=== PATIENT | female | born 2005 | race Caucasian/White ===

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

== ENCOUNTER 2023-01-06 18:19 | Emergency (ER) | payer OTHER, SELFPAY ==
[2023-01-06 18:20] VITALS: BP 121/81; PULSE 92; RESP 18; TEMP 36.6; O2SAT 96; BMI 33.9
--- NOTE | 2023-01-06 18:25 | EXP.UTC ---
Discharge Plan Disposition Patient Disposition: Home, Self-Care Condition: Good Prescriptions Prescriptions: New xbwudxsqpyhsgya-vjkgovyvz-YN [Bromfed DM] 2-30-10 mg/5 mL Syrup 5 ml PO Q6H PRN (Reason: Cough) Qty: 240 0RF ondansetron 4 mg Tablet,Disintegrating 4 mg PO Q8H PRN (Reason: Nausea) Qty: 12 0RF No Action Nexplanon 68 mg implant 68 mg SUBDERMAL DAILY nitrofurantoin macrocrystal 100 mg capsule 100 mg PO BID Qty: 14 0RF Rx Instructions: must administer with a meal/food fluconazole 150 mg tablet 150 mg PO Q3D Qty: 2 0RF Rx Instructions: Take one tab followed by a second 3 days later Referrals Follow up/Referrals: Provider,Referral, MD [Primary Care Provider] - See instructions Activity Restrictions/Add. Instructions Additional Instructions/Restrictions: Drink plenty of fluids. Take tylenol or ibuprofen for pain or fever. Take the medications as directed. Follow up with your regular doctor. GO TO THE ER FOR ANY WORSENING SYMPTOMS Clinical Impressions Clinical Impression: COVID-19, Acute viral syndrome Instructions Patient Instructions: Coronavirus Disease 2019, Preventing the Spread of Coronavirus Discharge Instructions Discharge ED Provider: Leo Charles [facility] [place] HPI General Stated complaint: home test covid +, rosanna, mouth pain Time Seen by Provider: 01/06/23 18:25 History of Present Illness Provider Complaint: She is here to have a pcr covid-19 test. She has felt bad for the past 3 days. She has had multiple + covid test at home. She denies any shortness of breath or congestion. Related Data Home Medications Medication Instructions Recorded Confirmed etonogestrel 68 mg subdermal 68 mg subdermal DAILY control 11/25/20 10/23/22 implant (Nexplanon) Previous Rx's Medication Instructions Recorded fluconazole 150 mg tablet 150 mg PO Q3D 2 doses #2 tabs 10/25/22 nitrofurantoin macrocrystal 100 mg 100 mg PO BID #14 caps 10/25/22 capsule cnksevlmlcyyqmf-edwtjnsakaulhcc-GS 5 ml PO Q6H PRN Cough #240 mL 01/06/23 2 mg-30 mg-10 mg/5 mL oral syrup (Bromfed DM) ondansetron 4 mg disintegrating 4 mg PO Q8H PRN Nausea #12 tabs 01/06/23 tablet Allergies Allergy/AdvReac Type Severity Reaction Status Date / Time No Known Allergies Allergy Verified 10/23/22 13:07 [facility] Disclaimer: The information contained in this section may have been updated after the patient was seen, as this information can be updated by other users. Medical History (Updated 01/06/23 @ 18:54 by Leo Charles APRN) No significant past medical history Surgical History (Updated 10/23/22 @ 13:07 by RON Cage) History of tonsillectomy and adenoidectomy Family History (Updated 10/23/22 @ 13:07 by RON Cage) Other No significant family history Social History Smoking Status: Never smoker alcohol intake: never substance use type: denies use current occupational status: student Travel in the last 8 weeks: None ROS Obtained: Yes All systems reviewed & no additional complaints except as documented Constitutional Constitutional: Reports chills and Reports fever(s) Eyes Eyes: Denies eye discharge ENT Ears, Nose, Mouth, and Throat: Reports as per HPI Cardiovascular Cardiovascular: Denies chest pain Respiratory Respiratory: Denies chest congestion and Reports cough Gastrointestinal Gastrointestingal: Reports nausea; Denies abdominal pain, constipation, cramping, diarrhea or vomiting Musculoskeletal Musculoskeletal: Denies arthralgias Integumentary/Breasts Skin/Breast: Denies rash Neurologic Neurologic: Denies paresthesias Physical Exam General General appearance: alert and in no apparent distress Head Head exam: atraumatic, normocephalic and normal inspection Eye Eye exam: Present normal appearance, PERRL and EOMI ENT ENT exam: Present normal exam, no
[2023-01-06 19:31] VITALS: BP 121/81; PULSE 92; RESP 18; TEMP 36.6; O2SAT 96
== END 2023-01-06 19:31 | disposition home or self-care (01) ==
PROVIDERS: Emergency Provider Nurse Practitioner Family
DX: U07.1 COVID-19 (principal)
CPT/HCPCS: 87635; 99212; 99214; G0463

== ENCOUNTER 2023-02-15 14:24 | Emergency (ER) | payer OTHER, SELFPAY ==
[2023-02-15 15:00] VITALS: BP 116/76; PULSE 81; RESP 18; TEMP 37.6; O2SAT 98; BMI 35.6
--- NOTE | 2023-02-15 15:15 | EXP.UTC ---
Discharge Plan Disposition Patient Disposition: Home, Self-Care Condition: Good Prescriptions Prescriptions: New prednisone 10 mg tablet 10 mg PO BID 3 Days Qty: 6 0RF azithromycin [Zithromax] 250 mg tablet 250 mg PO UD DOSE PK Qty: 6 0RF Rx Instructions: Take two (2) tablets today, then one (1) tablet days #2 thru #5 ibxllmsiqwgljth-poiqirmay-NA [Bromfed DM] 2-30-10 mg/5 mL Syrup 5 ml PO Q6H PRN (Reason: Cough) Qty: 240 0RF No Action Nexplanon 68 mg implant 68 mg SUBDERMAL DAILY Referrals Follow up/Referrals: Provider,Referral, MD [Primary Care Provider] - See instructions Activity Restrictions/Add. Instructions Additional Instructions/Restrictions: Drink plenty of fluids. Take tylenol or ibuprofen for pain or fever. Take the medications as directed. Follow up with your regular doctor. GO TO THE ER FOR ANY WORSENING SYMPTOMS Clinical Impressions Clinical Impression: Acute viral syndrome, Sinusitis Stand Alone Forms Stand Alone Forms: Work/School Release Instructions Patient Instructions: Sinusitis, DI for Viral Syndrome Discharge ED Provider: Leo Charles [facility] General Stated complaint: covid test Time Seen by Provider: 02/15/23 15:14 History of Present Illness Provider Complaint: She has felt bad and ran a fever since yesterday. She has been exposed to covid-19 so she came in to be tested today. Related Data Home Medications Medication Instructions Recorded Confirmed etonogestrel 68 mg subdermal 68 mg subdermal DAILY control 11/25/20 02/15/23 implant (Nexplanon) Previous Rx's Medication Instructions Recorded azithromycin 250 mg tablet 250 mg PO UD DOSE PK #6 tabs 02/15/23 (Zithromax) iiuuhorcmqqgvlu-ruegoskjkymsrva-AK 5 ml PO Q6H PRN Cough #240 mL 02/15/23 2 mg-30 mg-10 mg/5 mL oral syrup (Bromfed DM) prednisone 10 mg tablet 10 mg PO BID 3 days #6 tabs 02/15/23 Allergies Allergy/AdvReac Type Severity Reaction Status Date / Time No Known Allergies Allergy Verified 02/15/23 15:18 [facility] Disclaimer: The information contained in this section may have been updated after the patient was seen, as this information can be updated by other users. Medical History (Updated 02/15/23 @ 15:42 by Leo Charles APRN) No significant past medical history Surgical History History of tonsillectomy and adenoidectomy Family History Other No significant family history Social History Smoking Status: Never smoker alcohol intake: never substance use type: denies use current occupational status: student Travel in the last 8 weeks: None ROS Obtained: Yes All systems reviewed & no additional complaints except as documented Constitutional Constitutional: Reports poor appetite Eyes Eyes: Reports system reviewed and no additional complaints, except as documented ENT Ears, Nose, Mouth, and Throat: Reports as per HPI Cardiovascular Cardiovascular: Reports system reviewed and no additional complaints, except as documented and Denies chest pain Respiratory Respiratory: Denies shortness of breath, Denies chest congestion, Reports cough, Denies stridor and Denies wheezing Gastrointestinal Gastrointestingal: Reports system reviewed and no additional complaints, except as documented; Denies abdominal pain, diarrhea or vomiting Musculoskeletal Musculoskeletal: Reports system reviewed and no additional complaints, except as documented and Denies arthralgias Integumentary/Breasts Skin/Breast: Reports system reviewed and no additional complaints, except as documented and Denies rash Neurologic Neurologic: Denies paresthesias Allergic/Immunologic Allergic/Immunologic: Denies wheezing Physical Exam General General appearance: alert and in no apparent distress Eye Eye exam: Pre
[2023-02-15 15:47] LABS: Adenovirus,PCR Not Detected (NotDetected); Coronavirus 19, PCR Not Detected (NotDetected); Coronavirus 229E Not Detected (NotDetected); Coronavirus NL63 Not Detected (NotDetected); Coronavirus OC43 Not Detected (NotDetected); Coronovirus HKU1,PCR Not Detected (NotDetected); Human Metapneumovirus Not Detected (NotDetected); Influenza A, PCR Not Detected (NotDetected); Influenza AH1, 2009 Not Detected (NotDetected); Influenza AH1, PCR Not Detected (NotDetected); Influenza AH3,PCR Not Detected (NotDetected); Influenza B, PCR Not Detected (NotDetected); Parainfluenza 1, PCR Not Detected (NotDetected); Parainfluenza 2, PCR Not Detected (NotDetected); Parainfluenza 3, PCR Not Detected (NotDetected); Parainfluenza 4, PCR Not Detected (NotDetected); Respiratory Syncytial Virus Not Detected (NotDetected); Rhinovirus/Enterovirus Not Detected (NotDetected)
[2023-02-15 15:51] LABS: UTC Influenza A Antigen Negative (Negative)
[2023-02-15 15:52] LABS: UTC Influenza B Antigen Negative (Negative)
[2023-02-15 15:58] VITALS: BP 116/76; PULSE 81; RESP 18; TEMP 37.6; O2SAT 98
== END 2023-02-15 15:58 | disposition home or self-care (01) ==
PROVIDERS: Emergency Provider Nurse Practitioner Family
DX: J01.90 Acute sinusitis, unspecified (principal); R50.9 Fever, unspecified; B34.9 Viral infection, unspecified; Z20.822 Contact with and (suspected) exposure to COVID-19
CPT/HCPCS: 87632; 87635; 87804; 99212; 99214; G0463

== ENCOUNTER 2023-03-25 08:17 | Emergency (ER) | payer OTHER, SELFPAY ==
--- NOTE | 2023-03-25 08:22 | EXP.UTC ---
Discharge Plan Disposition Patient Disposition: Home, Self-Care Condition: Good Prescriptions Prescriptions: New amoxicillin [amoxicillin] 875 mg tablet 875 mg PO Q12H Qty: 20 0RF methylprednisolone 4 mg Tablets,Dose Pack 4 mg PO DIRECTED 6 Days Qty: 21 0RF Rx Instructions: Take 1 pack as directed for 6 days hvrbqevjoopivaw-uxfazbsaq-ZR [Bromfed DM] 2-30-10 mg/5 mL Syrup 5 ml PO Q6H PRN (Reason: Cough) Qty: 240 0RF No Action Nexplanon 68 mg implant 68 mg SUBDERMAL DAILY Referrals Follow up/Referrals: Provider,Referral, MD [Primary Care Provider] - See instructions Activity Restrictions/Add. Instructions Additional Instructions/Restrictions: Drink plenty of fluids. Take tylenol or ibuprofen for pain or fever. Take the medications as directed. Follow up with your regular doctor. GO TO THE ER FOR ANY WORSENING SYMPTOMS Throw your tooth brush away and get a new one. Clinical Impressions Clinical Impression: Strep throat, Otitis media Stand Alone Forms Stand Alone Forms: Work/School Release Instructions Patient Instructions: Strep Throat, DI for Strep Throat Discharge ED Provider: Leo Charles [facility] [place] HPI General Stated complaint: sore throat, cough Time Seen by Provider: 03/25/23 08:21 History of Present Illness Provider Complaint: She states that she has had left ear pain, sore throat, low grade fever and malaise for the past 3 days. Related Data Home Medications Medication Instructions Recorded Confirmed etonogestrel 68 mg subdermal 68 mg subdermal DAILY control 11/25/20 03/25/23 implant (Nexplanon) Previous Rx's Medication Instructions Recorded amoxicillin 875 mg tablet 875 mg PO Q12H #20 tabs 03/25/23 ekxpcurwqrtokvt-bmlctssvvwckgoi-AT 5 ml PO Q6H PRN Cough #240 mL 03/25/23 2 mg-30 mg-10 mg/5 mL oral syrup (Bromfed DM) methylprednisolone 4 mg tablets in 4 mg PO DIRECTED 6 days #21 tabs 03/25/23 a dose pack Allergies Allergy/AdvReac Type Severity Reaction Status Date / Time No Known Allergies Allergy Verified 03/25/23 08:43 [facility] Disclaimer: The information contained in this section may have been updated after the patient was seen, as this information can be updated by other users. Medical History No significant past medical history Surgical History History of tonsillectomy and adenoidectomy Family History Other No significant family history Social History Smoking Status: Never smoker alcohol intake: never substance use type: denies use current occupational status: student Travel in the last 8 weeks: None ROS Obtained: Yes All systems reviewed & no additional complaints except as documented Constitutional Constitutional: Reports chills and Reports fever(s) Eyes Eyes: Denies eye discharge ENT Ears, Nose, Mouth, and Throat: Reports as per HPI Cardiovascular Cardiovascular: Denies chest pain Respiratory Respiratory: Denies chest congestion and Reports cough Gastrointestinal Gastrointestingal: Reports nausea; Denies abdominal pain, constipation, cramping, diarrhea or vomiting Musculoskeletal Musculoskeletal: Denies arthralgias Integumentary/Breasts Skin/Breast: Denies rash Neurologic Neurologic: Denies paresthesias Physical Exam General General appearance: alert and in no apparent distress Head Head exam: atraumatic, normocephalic and normal inspection Eye Eye exam: Present normal appearance, PERRL and EOMI ENT ENT exam: Present mucous membranes moist and normal external ear exam Expanded ENT Exam TM/Canal exam: Bilateral TM: erythema and bulging Nose exam: Absent sinus tenderness Mouth exam: Present normal external inspection; Absent drooling Teeth exam: Present normal inspection Throat exam: Present tonsillar erythema, tonsillomegaly and tonsillar exudate Neck Neck exam: Present normal inspection, full ROM and trachea midline; Absent tenderness, meningismus or lymphadenopathy Chest Chest inspection: Present normal inspection and symmetric chest wall rise; Absent tenderness Respiratory Respiratory exam: Present normal lung sounds bilaterally; Absent respiratory distress, wheezes or stridor Cardiovascular Cardiovascular exam: Present regular rate and normal rhythm; Absent systolic murmur or diastolic murmur Abdominal Exam Abdominal exam: Present soft and normal bowel sounds; Absent distention, tenderness, guarding, rebound or rigidity Extremities Exam Extremities exam: Present normal inspection and normal capillary refill; Absent calf tenderness Back Exam Back exam: Present normal inspection and full ROM; Absent tenderness, CVA tenderness (R) or CVA tenderness (L) Neurological Exam Neurological exam: Present alert, oriented X3 and CN II-XII intact Psychiatric Psychiatric exam: Present normal affect and normal mood Skin Skin exam: Present warm, dry, intact and normal color Medical Decision Making Medical Records Medical records reviewed: No I reviewed the patient's medical records. [place] Inquiry Pt receiving controlled substance: No Lab Data Lab results reviewed: Yes I reviewed the patient's lab results.
[2023-03-25 08:25] VITALS: BP 111/71; PULSE 103; RESP 18; TEMP 36.8; O2SAT 99; BMI 34.6
[2023-03-25 08:38] LABS: UTC Strep Screen (Rapid) Positive (Negative)
[2023-03-25 08:51] VITALS: BP 111/71; PULSE 103; RESP 18; TEMP 36.8; O2SAT 99
== END 2023-03-25 08:47 | disposition home or self-care (01) ==
PROVIDERS: Emergency Provider Nurse Practitioner Family
DX: J02.0 Streptococcal pharyngitis (principal); R07.0 Pain in throat; H66.93 Otitis media, unspecified, bilateral; R05.9 Cough, unspecified; R50.9 Fever, unspecified; R53.81 Other malaise
CPT/HCPCS: 87880; 99212; 99214; G0463

== ENCOUNTER 2024-05-13 12:24 | Emergency (ER) | payer BC, SELFPAY ==
[2024-05-13 12:34] VITALS: BP 148/81; PULSE 100; RESP 18; TEMP 36.7; O2SAT 100; BMI 38.6
--- NOTE | 2024-05-13 12:38 | XR_ITS ---
FINAL REPORT CLINICAL HISTORY: FALL FINDINGS: RIGHT TIBIA AND FIBULA There is no acute fracture or dislocation. The joint spaces are intact. There is no soft tissue abnormality. IMPRESSION: No acute fracture Reviewed, Interpreted and Dictated by Saranya Dowell MD Transcribed by Lorena Young Authenticated and [facility]
--- NOTE | 2024-05-13 12:38 | XR_ITS ---
FINAL REPORT CLINICAL HISTORY: Right ankle injury FINDINGS: RIGHT ANKLE 3 views of the right ankle were obtained. There is no acute fracture or dislocation. The mortise is intact. Visualized joint spaces are normally aligned. Soft tissues are unremarkable. IMPRESSION: No acute bony abnormality. Reviewed, Interpreted and Dictated by Saranya Dowell MD Transcribed by Lorena Young Authenticated and [facility]
--- NOTE | 2024-05-13 12:39 | XR_ITS ---
FINAL REPORT CLINICAL HISTORY: Rt foot/ankle injury FINDINGS: RIGHT FOOT 3 views of the right foot were obtained. There is no acute fracture or dislocation. Visualized joint spaces are normally aligned. Soft tissues are unremarkable. IMPRESSION: No acute bony abnormality. Reviewed, Interpreted and Dictated by Saranya Dowell MD Transcribed by Lorena Young Authenticated and [facility]
--- NOTE | 2024-05-13 12:56 | PC.NURSE ---
PT TO RADIOLOGY
--- NOTE | 2024-05-13 13:40 | PC.NURSE ---
ANTHONY NG PA-C AT BEDSIDE
--- NOTE | 2024-05-13 13:42 | ED_ITS ---
Discharge Plan Disposition Patient Disposition: Home, Self-Care Condition: Good Prescriptions Prescriptions: No Action Nexplanon 68 mg implant 68 mg SUBDERMAL DAILY Referrals Follow up/Referrals: Provider,Referral, MD [Primary Care Provider] - See instructions Activity Restrictions/Add. Instructions Additional Instructions/Restrictions: Follow-up with repeat x-rays in 7 to 10 days if pain and swelling persist, I recommend rest ice compression elevation weight-bear as tolerated with the boot, use anti-inflammatory medication such as ibuprofen naproxen Tylenol as needed for pain. Turn to the emerged part with any worsening signs or symptoms. Clinical Impressions Clinical Impression: Mild sprain of right ankle Instructions Patient Instructions: Ankle Sprain, DI for Ankle Sprain, DI for Ankle Pain Print Language Print Language: Korean Discharge ED Provider: Kurt Bray General Adult HPI <PHILIPPE Brower - Last Filed: 05/13/24 13:49> General Chief complaint: PAIN Stated complaint: AO 05/12 1700 twisted right ankle Time Seen by Provider: 05/13/24 13:38 Mode of Arrival: Wheelchair Source of Information: Patient Limitations: No Limitations Description of Symptoms (Recalled from ER Triage Doc. by RN): PT REPORTS RIGHT ANKLE PAIN AND SWELLING, PT TWISTED ANKLE IN A HOLE History of Present Illness HPI narrative: 18 year-old female presents to the emergency department with a right ankle injury, patient states that yesterday she stepped in a hole , she has had some issues with weightbearing and pain after the injury. She has been utilizing ibuprofen with some relief, she has no other acute signs or symptoms, no numbness tingling no upper or lower extremity weakness, she endorses pain and swelling to the area, she has no other real relevant past medical history takes no other medications at home, no history of substance use and distress vitals unremarkable. Onset (ago): day(s) Related Data Home Medications ?Medication ?Instructions ?Recorded ?Confirmed etonogestrel 68 mg subdermal 68 mg subdermal DAILY control 11/25/20 12/10/23 implant (Nexplanon) Allergies Allergy/AdvReac Type Severity Reaction Status Date / Time No Known Allergies Allergy Verified 12/10/23 09:17 PFSH <PHILIPPE Brower - Last Filed: 05/13/24 13:49> [facility] Disclaimer: The information contained in this section may have been updated after the patient was seen, as this information can be updated by other users. Medical History No significant past medical history Surgical History History of tonsillectomy and adenoidectomy Family History Other No significant family history Social History Smoking Status: Never smoker alcohol intake: never substance use type: denies use current occupational status: student Travel in the last 8 weeks: None Have you lived/traveled outside [place] in past 30 days?: No Contact w/someone who lives/traveled outside [place] past 30 days?: No Exposure to someone with infectious disease in past 14 days?: No Do you have a fever (greater than 100.4 F or 38 C)?: No Have you tested positive for COVID-19: No Exposed to someone with COVID-19 in past 14 days?: No Do you have a sore throat?: No Do you have a cough?: No Do you have any weakness?: No Do you have any diarrhea?: No Are you experiencing any unusual bleeding?: No Do you have any muscle aches/pain?: No Do you have any abdominal pain?: No Are you experiencing loss of taste or smell?: No Other Medical History Have you received the Pneumonia Vaccine: No <PHILIPPE Brower - Last Filed: 05/13/24 13:49> ROS Obtained: Yes All systems reviewed & no additional complaints except as documented Physical Exam <PHILIPPE Brower - Last Filed: 05/13/24 13:49> General General appearance: alert and in no apparent distress Head Head exam: atraumatic and normocephalic Eye Eye exam: Present PERRL and EOMI ENT ENT exam: Present mucous membranes moist Neck Neck exam: Present normal inspection Chest Chest inspection: Present normal inspection and symmetric chest wall rise Respiratory Respiratory exam: Present normal lung sounds bilaterally; Absent respiratory distress Cardiovascular Cardiovascular exam: Present regular rate and normal rhythm Abdominal Exam Abdominal exam: Present soft; Absent tenderness Extremities Exam Extremities exam: Present normal inspection, tenderness, joint swelling and other (There is some mild soft tissue swelling about the lateral malleolus on the right ankle some pain to the patient to that area as well, otherwise neuro vascular intact.); Absent full ROM Neurological Exam Neurological exam: Present alert and oriented X3 Psychiatric Psychiatric exam: Present normal affect Skin Skin exam: Present warm and dry Medical Decision Making <PHILIPPE Brower - Last Filed: 05/13/24 13:49> Medical Records Medical records reviewed: Yes I reviewed the patient's medical records. Screening: Per USPSTF and CDC recommendations, given the prevalence of disease in our region, it is our hospital?s policy to screen for HIV and viral Hepatitis for all patients aged 18 and over and those with ongoing risk factors. [place] Inquiry Pt receiving controlled substance: No [place] was queried for this patient: No Vital Signs: 05/13/24 12:34 05/13/24 13:53 Temperature 98.0 F 97.9 F Temperature Source Oral Oral Pulse Rate 88 Pulse Rate [Radial] 100 H Respiratory Rate 18 18 Blood Pressure 136/80 Blood Pressure [Left Arm] 148/81 H Blood Pressure Mean [Left Arm] 103 Blood Pressure Source Manual Cuff/ Doppler Blood Pressure Source [Left Arm] Automatic Cuff Blood Pressure Position Sitting Blood Pressure Position [Left Arm] Sitting 02 Sat by Pulse Oximetry 100 Oxygen Delivery Method Room Air Room Air Orders (Tests/Meds): ORDERS Category Date Time Status XR ankle RT min 3V Stat Exams 05/13/24 12:38 Completed XR foot RT min 3V Stat Exams 05/13/24 12:39 Completed XR tibia fibula RT 2V Stat Exams 05/13/24 12:38 Completed Medical Decision Narrative: 18-year-old female presents to the emergency department with a right ankle/foot injury, differential diagnose include but not limited to, ankle fracture, ankle sprain, foot sprain, foot fracture. I will obtain x-ray of the right foot right ankle and right tib-fib for further evaluation as characterization. I reviewed the patient's x-ray of the right foot, right ankle and right tib-fib along with the corresponding radiologic reports, there is no acute bony abnormality. I discussed the results with the patient and family the bedside, patient family cleared to be discharged home to self-care, follow-up with PCP as directed, strict ED return precaution given. Recommend rest ice compression elevation, will place the patient in a boot to weight-bear as tolerated, patient family voiced understand agree with current treatment player/discharge plan. <Kurt Bray MD - Last Filed: 05/13/24 15:00> Vital Signs: 05/13/24 12:34 05/13/24 13:53 Temperature 98.0 F 97.9 F Temperature Source Oral Oral Pulse Rate 88 Pulse Rate [Radial] 100 H Respiratory Rate 18 18 Blood Pressure 136/80 Blood Pressure [Left Arm] 148/81 H Blood Pressure Mean [Left Arm] 103 Blood Pressure Source Manual Cuff/ Doppler Blood Pressure Source [Left Arm] Automatic Cuff Blood Pressure Position Sitting Blood Pressure Position [Left Arm] Sitting 02 Sat by Pulse Oximetry 100 Oxygen Delivery Method Room Air Room Air Orders (Tests/Meds): ORDERS Category Date Time Status XR ankle RT min 3V Stat Exams 05/13/24 12:38 Completed XR foot RT min 3V Stat Exams 05/13/24 12:39 Completed XR tibia fibula RT 2V Stat Exams 05/13/24 12:38 Completed Medical Decision Narrative: 18-year-old female presents to the emergency department with a right ankle/foot injury, differential diagnose include but not limited to, ankle fracture, ankle sprain, foot sprain, foot fracture. I will obtain x-ray of the right foot right ankle and right tib-fib for further evaluation as characterization. I reviewed the patient's x-ray of the right foot, right ankle and right tib-fib along with the corresponding radiologic reports, there is no acute bony abnormality. I discussed the results with the patient and family the bedside, patient family cleared to be discharged home to self-care, follow-up with PCP as directed, strict ED return precaution given. Recommend rest ice compression elevation, will place the patient in a boot to weight-bear as tolerated, patient family voiced understand agree with current treatment player/discharge plan. I was consulted by the ROSS, and we discussed the complexity of the problems being addressed. I approved the treatment and management plan for this patient's care in the Emergency Department, thus performing a substantive portion of the medical decision making. Kurt Bray MD Critical Care <PHILIPPE Brower - Last Filed: 05/13/24 13:49> Critical Care Time Critical Care Time: No
[2024-05-13 13:53] VITALS: BP 136/80; PULSE 88; RESP 18; TEMP 36.6; O2SAT 99
== END 2024-05-13 13:53 | disposition home or self-care (01) ==
PROVIDERS: Emergency Provider Emergency Medicine
DX: S93.401A Sprain of unspecified ligament of right ankle, initial encounter (principal); X50.0XXA Overexertion from strenuous movement or load, initial encounter
CPT/HCPCS: 73590; 73610; 73630; 99283